=== PATIENT | female | born 1930 | race Caucasian/White ===

== ENCOUNTER 2017-09-20 14:56 | Emergency (ER) | payer MEDICARE, OTHER ==
--- NOTE | 2017-09-20 15:20 | ERPHSYRPT ---
- History of Present Illness Time Seen by Provider: 09/20/17 15:10 Source: patient Exam Limitations: no limitations Patient Subjective Stated Complaint: pt reports falling onto right shoulder on -states that it hurts when she attempts to raise her arm-denies numbness or tinlging to extremity Triage Nursing Assessment: pt pink warm and [id number] all questions correctly-bruising noted Physician History: This is a 86-year-old white female who arrives with complaint of pain in her right shoulder right upper arm symptoms for 2 days. Patient states that she was going up the stairs 2 days ago and fell she is not quite sure why she fell she did not have loss of consciousness patient and her family states that the patient has a history of chronically falling and feels like her legs give out. Patient has been worked up by her family . secondary to this she is had Dopplers as well as MRIs. Patient denies any other complaints at this time past medical history includes GERD, hyperlipidemia. Past surgical history includes L3-L4 lumbar surgery in 2002, fracture right arm with ORIF, hysterectomy, bladder suspension. . Occurred: days ago (2 days ago) Method of Injury: fell Quality: constant Severity of Pain-Max: moderate Severity of Pain-Current: moderate Extremities Pain Location: shoulder: right, arm: right Modifying Factors: Improves With: movement Associated Symptoms: none Allergies/Adverse Reactions: No Known Drug Allergies Allergy (Verified 09/20/17 15:07) Home Medications: Amlodipine Besylate 5 mg [Norvasc 5 mg] 5 mg PO HS 04/10/14 [History] Furosemide [Lasix] 40 mg PO BID 04/10/14 [History] Rosuvastatin Calcium [Crestor] 10 mg PO HS 04/10/14 [History] Potassium Chloride 10 Meq Tab* [Klor Con 10 MEQ] 10 meq PO BID 04/12/14 [ History] Omeprazole Magnesium [Prilosec Otc] 20 mg PO DAILY PRN PRN 04/13/14 [History] Hx Tetanus, Diphtheria Vaccination/Date Given: No Hx Influenza Vaccination/Date Given: Yes Hx Pneumococcal Vaccination/Date Given: No Immunizations Up to Date: Yes - Review of Systems Constitutional: No Fever, No Chills Eyes: No Symptoms Ears, Nose, & Throat: No Symptoms Respiratory: No Cough, No Dyspnea Cardiac: No Chest Pain, No Edema, No Syncope Abdominal/Gastrointestinal: No Abdominal Pain, No Nausea, No Vomiting, No Diarrhea Genitourinary Symptoms: No Dysuria Musculoskeletal: Other (pain in right shoulder right upper arm, worse with movement of her right shoulder) Skin: Other (patient with a bruise anterior right shoulder) Neurological: No Dizziness, No Focal Weakness, No Sensory Changes Psychological: No Symptoms Endocrine: No Symptoms All Other Systems: Reviewed and Negative - Past Medical History Pertinent Past Medical History: Yes Neurological History: No Pertinent History ENT History: No Pertinent History Cardiac History: No Pertinent History, High Cholesterol Respiratory History: No Pertinent History Endocrine Medical History: No Pertinent History Musculoskeletal History: No Pertinent History GI Medical History: GERD History: No Pertinent History Psycho-Social History: No Pertinent History Female Reproductive Disorders: No Pertinent History Other Medical History: hx of bladder tuck, urinary tract infections, hx of elevated creatinine, hx of hysterectomy - Past Surgical History Past Surgical History: Yes Neuro Surgical History: No Pertinent History Cardiac: No Pertinent History Respiratory: No Pertinent History Gastrointestinal: No Pertinent History Genitourinary: Other Musculoskeletal: Orthopedic Surgery Female Surgical History: Hysterectomy Other Surgical History: L3-4 lumbar surgery 2002, orthopedic surgery for fx to R arm with screw, hysterectomy with bladder tuck - Social History Smoking Status: Never smoker Exposure to second hand smoke: No Drug Use: none Patient Lives Alone: No - Female History Hx Now: No - Nursing Vital Signs Nursing Vital Signs: Initial Vital Signs Temperature 99 F 09/20/17 15:06 Pulse Rate 87 09/20/17 15:06 Respiratory Rate 18 09/20/17 15:06 Blood Pressure 162/76 09/20/17 15:06 O2 Sat by Pulse Oximetry 96 09/20/17 15:06 Pain Scale Pain Intensity 3 - Physical Exam General Appearance: other (elderly white female alert oriented 3 , does not appear to be in acute distress) Eyes, Ears, Nose, Throat Exam: moist mucous membranes Neck Exam: non-tender, supple Cardiovascular/Respiratory Exam: chest non-tender, normal breath sounds, regular rate/rhythm, no respiratory distress Abdominal Exam: non-tender, No guarding Back Exam: normal inspection, No vertebral tenderness Shoulder Exam: No normal inspection (3 cm x 1 cm ecchymosis right anterior shoulder right shoulder tender with pain and palpation, patient able to abduct her rightshoulder to 100 full range of motion right elbow handwrist fingers pain right proximal humerus with movement of right shoulder) Elbow/Forearm Exam: normal inspection, non-tender, no evidence of injury, normal ROM Wrist Exam: normal inspection, non-tender, no evidence of injury, normal ROM Hand Exam: normal inspection, non-tender, no evidence of injury, normal ROM Neuro/Tendon Exam: normal sensation, normal motor functions, No sensory deficit Mental Status Exam: alert, oriented x 3, cooperative, other (patient is alert, oriented 3, cranial nerves II through XII intact, unarmed security guard equal and symmetrical 5 over5, speech normal GCS equals 15 sensation intact to all extremities full range of motion to all extremitiies with the exception of pain with moving right shoulder) Skin Exam: normal color, warm, dry SpO2 Interpretation: normal (96%) SpO2: 96 Oxygen Delivery: Room Air - Course Nursing assessment & vital signs reviewed: Yes - Radiology Exams Right Shoulder X-ray Interpretation: Interpreted by me, No Fracture, No Subluxation Right Humerus X-ray Interpretation: Interpreted by me, No Fracture, No Subluxation Ordered Tests: Active Orders 24 hr Category Date Time Status Sling Application STAT Care 09/20/17 15:57 Active HUMERUS Stat Exams 09/20/17 15:30 Taken SHOULDER Stat Exams 09/20/17 15:14 Taken Medication Summary Discontinued Medications Generic Name Dose Route Start Last Admin Trade Name Freq PRN Reason Stop Dose Admin Hydrocodone Bitart/Acetaminophen 1 tab 09/20/17 15:54 [place] 5/325 Mg PO 09/20/17 15:55 STAT ONE - Progress Progress: improved Progress Note: 09/20/17 15:23 86-year-old white female arrives with complaint of pain in her right shoulder since 2 days patient apparently fell going up the stairs 2 days ago she has a small amount of bruising on her right anterior shoulder she is able to abductor right shoulder to 110 she has full range of motion to her right elbow wrist fingers hands radial and ulnar pulses are intact and symmetrical 2 over 4 good capillary refill to all fingers sensation intact to all fingers Patient does have a history of frequent falls where she feels like her legs give out on her when she walks this has been is being worked up by her family physician she has had MRIs secondary to this She has normal neurologic examination at this time. We'll go ahead and obtain x -ray the patient's right shoulder and humerus 09/20/17 15:50 X-ray right shoulder and right humerus both my read: No fracture no subluxation. Will go ahead and offer patient sling for a couple days cold packs to the area. Pain control Patient will need to follow back up with her family doctor she does however have fairly good mobility of her right shoulder she is able to abduct her right shoulder to 110. - Departure Time of Disposition: 15:55 Departure Disposition: Home Clinical Impression: Contusion of right shoulder Qualifiers: Encounter type: initial encounter Qualified Code(s): S40.011A - Contusion of right shoulder, initial encounter Right shoulder pain Qualifiers: Chronicity: acute Qualified Code(s): M25.511 - Pain in right shoulder Right shoulder strain Qualifiers: Encounter type: initial encounter Qualified Code(s): S46.911A - Strain of unspecified muscle, fascia and tendon at shoulder and upper arm level, right arm , initial encounter Condition: Fair Critical Care Time: No Referrals: THIEN ASHFORD [Primary Care Provider] - Additional Instructions: Return home. Ice to right shoulder 24-48 hours. May use sling 48-72 hours. Follow-up with your family doctor. Tougaloo as prescribed. Return for acute distress or for severe symptoms. Your x-rays have been preliminarily read they will be reread tomorrow you will be contacted if any discrepancies are noted. Prescriptions: Hydrocodone/Acetaminophen [[place] 5-325 Tablet] 1 tab PO Q4-6HPRN PRN #10 tablet MDD 6 tablets PRN Reason: Pain
[2017-09-20] MEDS ORDERED: NORCO 5/325 MG PO ONE (15:54)
[2017-09-20] MEDS ORDERED: NORCO 5/325 MG ONE (15:59)
[2017-09-20 16:24] VITALS: BP 121/60; PULSE 75; O2SAT 98
--- NOTE | 2017-09-21 07:32 | XRAY ---
Indication: Pain following fall. Comparison: None 3 views of the right shoulder demonstrates a nondisplaced distal clavicle fracture. Elsewhere mild osteopenia and a few pulmonary calcified granulomas. No other bony, articular, or soft tissue abnormalities. Comment: Fracture not reported on preliminary interpretation by the ER clinician. Telephone report given to Dr. Funk at 0725 hrs. on September 21, 2017.
--- NOTE | 2017-09-21 07:32 | XRAY ---
Indication: Pain following fall. Comparison: None 2 views of the right humerus demonstrates osteopenia, tiny humeral head bone cyst, and old proximal ulnar fracture with orthopedic screw/wire. No other bony, articular, or soft tissue abnormalities.
== END 2017-09-20 16:24 | disposition home or self-care (01) ==
LOC: ED 14:56
DX: S40.011A Contusion of right shoulder, initial encounter (principal); S46.911A Strain of unspecified muscle, fascia and tendon at shoulder and upper arm level, right arm, initial encounter; M25.511 Pain in right shoulder; W10.9XXA Fall (on) (from) unspecified stairs and steps, initial encounter; Z91.81 History of falling; Z79.899 Other long term (current) drug therapy
CPT/HCPCS: 73030; 73060; 99283; 99284; A9270-GY